=== PATIENT | male | born 1970 | race Caucasian/White ===

== ENCOUNTER → 2017-08-04 | Outpatient (REF) ==
--- NOTE | 2017-08-04 14:16 | Diagnostic Imaging Report ---
INDICATION: Paresthesias of the hand. Three views of the thoracic spine were obtained. FINDINGS: The alignment of the thoracic spine is normal. Vertebral body heights are well maintained. There is no fracture or traumatic subluxation. There are mild degenerative changes. IMPRESSION: Mild thoracic spondylosis; otherwise, unremarkable. Dictated by: Dictated on workstation # [id number]
--- NOTE | 2017-08-04 14:16 | Diagnostic Imaging Report ---
INDICATION: Neck pain. 3 views were obtained. FINDINGS: There is some straightening of normal cervical lordosis. There is some degenerative disc disease at C5-6 and C6-7. There is no fracture or traumatic subluxation. The odontoid is intact with lateral masses well aligned. Prevertebral soft tissues are within normal limits. IMPRESSION: Mild cervical spondylosis and lower cervical degenerative disc disease as described. Dictated by: Dictated on workstation # [id number]
== END | disposition home or self-care (01) ==
LOC: OCC 13:42
PROVIDERS: ATTEND Nurse Practitioner Family
CPT/HCPCS: 72040; 72072